=== PATIENT | female | born 1930 | race Caucasian/White ===

== ENCOUNTER 2017-12-19 14:35 | Emergency (ER) | payer MEDICARE, BC ==
[2017-12-19] MEDS ORDERED: traMADol 50 MG Tab PO ONE (14:45)
[2017-12-19 15:05] VITALS: BP 135/79
--- NOTE | 2017-12-19 15:33 | EDM.PDOC ---
ED HPI GENERAL MEDICAL PROBLEM - General Chief Complaint: General Stated Complaint: Fall with low back pain Time Seen by Provider: 12/19/17 14:44 Source of Information: Reports: Patient, Other (Marlee) History Limitations: Reports: No Limitations - History of Present Illness INITIAL COMMENTS - FREE TEXT/NARRATIVE: Patient comes to ER with complaint of mid back pain and left hip discomfort after falling onto buttocks this morning while picking out her clothes for the day. Complained of developing a sensation of dizziness which led to the fall. Points to lower thoracic/upper lumbar region as area in question. Did not hit head. Has small bruise left elbow. No LOC. No other reported new complaints at this time. History of chronic vertigo. No focal acute neuro changes. No fevers/chills Denies HEENT changes/CV/Resp/GI/ changes. Mid-Back Pain Score (Numeric/FACES): 10 - Related Data Allergies Allergy/AdvReac Type Severity Reaction Status Date / Time enoxaparin sodium Allergy Bleeding Verified 05/30/16 14:38 [From Lovenox] heparin Allergy Bleeding Verified 05/30/16 14:38 NSAIDS (Non-Steroidal Allergy Cannot Verified 05/30/16 14:38 Anti-Inflamma Remember tetracycline [Tetracycline] Allergy Fainting Verified 05/30/16 14:38 Home Meds: Home Meds Allopurinol [Zyloprim] 100 mg PO DAILY 02/24/14 [History] Calcitriol [Rocaltrol] 0.25 mcg PO ASDIRECTED 02/24/14 [History] Citalopram Hydrobromide [Celexa] 10 mg PO DAILY 02/24/14 [History] LORazepam [Ativan] 0.25 mg PO BID 02/24/14 [History] Mirtazapine [Remeron] 15 mg PO BEDTIME 02/24/14 [History] Nitroglycerin [Nitrostat] 0.4 mg SL ASDIRECTED 02/24/14 [History] Potassium Chloride [Klor-Con M20] 20 meq PO DAILY 02/24/14 [History] Simvastatin [Zocor] 40 mg PO BEDTIME 02/24/14 [History] Acetaminophen [Tylenol] 650 mg PO Q4HR PRN 05/30/16 [History] Acetaminophen with Codeine [Acetaminophen-Cod #3] 1 tab PO BEDTIME MDD 3000 mg Tylenol, 360 mg Codein 05/30/16 [History] Acetaminophen with Codeine [Acetaminophen-Cod #3] 1 tab PO Q4HR PRN MDD 3000 Tylenol, 360 codiene 05/30/16 [History] Bisacodyl [Biscolax] 10 mg RC DAILY PRN 05/30/16 [History] Bumetanide [Bumex] 1 mg PO BID 05/30/16 [History] Gabapentin [Neurontin] 100 mg PO BID 05/30/16 [History] Magnesium Hydroxide [Milk of Magnesia] 30 ml PO DAILY PRN 05/30/16 [History] Menthol [Cough Drops] 5.4 mg MM ASDIRECTED PRN 05/30/16 [History] Metoprolol Succinate [Toprol XL] 12.5 mg PO DAILY 05/30/16 [History] Propylene Glycol/Peg 400 [Systane 0.3-0.4% Eye Drops] 2 drop EYEBOTH QID [History] Saliva Stimulant Agents Comb.3 [Biotene Moisturizing Mouth [place]] 2 spray MM ASDIRECTED PRN 05/30/16 [History] Sennosides/Docusate Sodium [Senna S Tablet] 1 each PO BID PRN 05/30/16 [History] Albuterol Sulfate 0.63 mg IH QID PRN 12/19/17 [History] Albuterol [Proair HFA] 2 puff INH Q4HR PRN 12/19/17 [History] Calcium Carbonate [Tums] 2 tab PO ASDIRECTED PRN MDD 10 12/19/17 [History] Cholecalciferol (Vitamin D3) [Vitamin D3] 1,000 unit PO DAILY 12/19/17 [History] Fluticasone Furoate [Arnuity Ellipta] 200 mcg IH DAILY 12/19/17 [History] Loperamide HCl [Imodium A-D] 2 mg PO Q3HR PRN MDD 8 12/19/17 [History] Oxybutynin [Oxybutynin ER] 10 mg PO DAILY 12/19/17 [History] Umeclidinium [place] [Incruse Ellipta] 1 puff INH DAILY 12/19/17 [History] traMADol HCl [Tramadol HCl] 50 mg PO Q6H PRN #28 tablet 12/19/17 [Rx] Past Medical History HEENT History: Reports: Cataract, Other (See Below) Other HEENT History: Chronic vertigo, bilateral cataract surgery as below Cardiovascular History: Reports: Aneurysm, Bypass, CAD, Cardiomyopathy, Heart Failure, Heart Murmur, High Cholesterol, Hypertension, DE, Pulmonary Hypertension, PVD, Stents, Other (See Below) Other Cardiovascular History: 2 previous aneurysms currently under observation protocol, severe ischemic cardiomyopathy with recurrent CHF, dyslipidemia, multiple previous non-STEMI MIs including on 08/04/10, September 2011, and 10/13/11 , multiple cardiac surgeries and AAA repair as below Respiratory History: Reports: COPD Gastrointestinal History: Reports: Cholelithiasis, Chronic Constipation, Gastritis, GI Bleed, PUD, Other (See Below) Other Gastrointestinal History: Likely upper GI bleed diagnosed on 05/09/14, chronic dysphagia Genitourinary History: Reports: Chronic Renal Insuffiency, UTI, Recurrent SINGLE RESOURCE BOSS History: Reports: Musculoskeletal History: Reports: Fracture, Gout, Osteoarthritis, Osteoporosis, Other (See Below) Other Musculoskeletal History: Previous finger fracture Psychiatric History: Reports: Anxiety, Depression Endocrine/Metabolic History: Reports: Hyperparathyroidism Hematologic History: Reports: Anemia Oncologic (Cancer) History: Reports: Basal Cell Carcinoma, Malignant Melanoma, Other (See Below) Other Oncologic History: Melanoma of the nose and ears per [facility] chart however [facility] record showed these to be basal cell carcinomas, basal cell of the left chin and right Achilles tendon area with additional basal cell carcinoma of the right nose in 1998 and right ear in 2005 - Infectious Disease History Infectious Disease History: Reports: C-Difficile, Chicken Pox, Measles, Mumps, Shingles - Past Surgical History HEENT Surgical History: Reports: Cataract Surgery, Tonsillectomy, Other (See Below) Cardiovascular Surgical History: Reports: AAA Repair, Coronary Artery Bypass, Coronary Artery Stent, Other (See Below) GI Surgical History: Reports: Cholecystectomy, ERCP, Other (See Below) Musculoskeletal Surgical History: Reports: ORIF, Other (See Below) Dermatological Surgical History: Reports: Skin Biopsy - Past Imaging History Past Imaging History: Reports: Cardiac Echo, CAT Scan Social & Family History - Family History Cardiac: Reports: CAD, Hypertension, PVD/COD, Other (See Below) Other Cardiac Family History: Heart disease in 2 brothers and 2 sisters, hypertension in father, 5 sisters and mother, sister with renal artery stenosis as below Respiratory: Reports: COPD : Reports: Renal Disease/Insufficiency, Other (See Below) Other Family History: Chronic renal disease in sister including renal artery stenosis Neurological: Reports: CVA, Migraines, Other (See Below) Other Neurological Family History: Migraine headaches in paternal grandfather, CVA in father Psychiatric: Reports: Anxiety, Depression Endocrine/Metabolic: Reports: Diabetes, type II, Other (See Below) Other Endocrine/Metabolic Family History: Diabetes mellitus in son and mother Oncologic: Reports: Brain, Renal, Other (See Below) Other Oncologic Family History: Brother with renal cancer, granddaughter with brain cancer diagnosed as oligodendroglioma at age 19, unknown type of brain cancer in daughter in her 60s - Tobacco Use Smoking Status *Q: Never Smoker Second Hand Smoke Exposure: Yes - Caffeine Use Caffeine Use: Reports: Coffee - Alcohol Use Days Per Week of Alcohol Use: 0 - Recreational Drug Use Recreational Drug Use: No Drug Use in Last 12 Months: No - Living Situation & Occupation Living situation: Reports: , Extended Care Facility ED ROS GENERAL - Review of Systems Review Of Systems: ROS reveals no pertinent complaints other than HPI. ED EXAM, GENERAL - Physical Exam Exam: See Below Exam Limited By: No Limitations General Appearance: Alert, WD/WN, No Apparent Distress Eye Exam: Bilateral Eye: EOMI, PERRL Ears: Normal External Exam Nose: No: Nasal Deformity, Nasal Swelling, Nasal Drainage Throat/Mouth: Normal Inspection, Normal Voice, No Airway Compromise Head: Atraumatic, Normocephalic Neck: Normal Inspection, Supple, Non-Tender, Full Range of Motion Respiratory/Chest: No Respiratory Distress, Lungs Clear, Normal Breath Sounds, No Accessory Muscle Use, Chest Non-Tender Cardiovascular: Normal Peripheral Pulses, Regular Rate, Rhythm Peripheral Pulses: 2+: Radial (L), Radial (R) GI/Abdominal: Normal Bowel Sounds, Soft, Non-Tender, No Distention (Female) Exam: Deferred Rectal (Female) Exam: Deferred Back Exam: Other (mild tenderness noted palpation of thoraco-lumbar junction and adjacent soft tissue on right. ) Extremities: Normal Range of Motion, No Pedal Edema, Normal Capillary Refill, Other (mild tenderness left lateral hip. No bruising noted. ). 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 Equal strength lower extremities. Able to lift legs in air bilaterally without obvious discomfort. ) Psychiatric: Normal Affect, Normal Mood Skin Exam: Warm, Dry, Intact, Ecchymosis (left elbow. ) Course - Vital Signs Last Recorded V/S: Last Vital Signs Temp 36.6 C 12/19/17 14:35 Pulse 75 12/19/17 14:35 Resp 18 12/19/17 14:35 BP 135/79 12/19/17 14:35 Pulse Ox 92 L 12/19/17 14:35 - Orders/Labs/Meds Orders: Active Orders 24 hr Category Date Time Status Hip Min 2V or 3V w Pelvis Lt [CR] Stat Exams 12/19/17 15:25 Taken Lumbar Spine 2 or 3V [CR] Stat Exams 12/19/17 14:44 Taken Thoracic Spine 2V [CR] Stat Exams 12/19/17 14:44 Taken Meds: Medications Discontinued Medications Generic Name Dose Route Start Last Admin Trade Name Freq PRN Reason Stop Dose Admin Tramadol HCl 50 mg 12/19/17 14:45 12/19/17 15:23 Ultram PO 12/19/17 14:46 50 mg ONETIME ONE Administration - Radiology Interpretation Free Text/Narrative:: Xrays of thoracic and lumbar spine ordered to look for compression fracture. Pelvis and hip films ordered. Radiology did not note any acute changes suggestive of new compression fracture or other acute bony injury. - Re-Assessments/Exams Free Text/Narrative Re-Assessment/Exam: 12/19/17 17:08 Patient able to stand with assist, had weight equally on both extremities. Overall appeared comfortable throughout stay. Given Tramadol PO early on. Rated discomfort a "5" when standing. No obvious acute fracture noted. Conservative treatment plan at this time. Ice/ gentle activity/PRN Tramadol. To watch for changes. To follow up with primary as needed if no improvement is noted within the next week or if there are sudden worsening changes. Radiology recommended to consider MRI if additional imaging is thought to be required. Vital signs stable. No other complaints during stay in ER. Departure - Departure Time of Disposition: 16:53 Disposition: DC/Tfer to [facility] 03 Condition: Good Clinical Impression: Left hip pain Fall Qualifiers: Encounter type: initial encounter Qualified Code(s): W19.XXXA - Unspecified fall, initial encounter Back pain Qualifiers: Back pain location: back pain in unspecified location Chronicity: acute Back pain laterality: midline Qualified Code(s): M54.9 - Dorsalgia, unspecified Arm contusion Qualifiers: Encounter type: initial encounter Laterality: left Qualified Code(s): S40.022A - Contusion of left upper arm, initial encounter - Discharge Information Prescriptions: traMADol HCl [Tramadol HCl] 50 mg PO Q6H PRN #28 tablet PRN Reason: Pain (Moderate 4-6) Referrals: Jim Ricci MD [Primary Care Provider] - Forms: ED Department Discharge Additional Instructions: Watch for changes. If there are any concerns/worsening problems, or if pain is not improving within the next week, follow up with primary provider and consider obtaining MRI. Tramadol PRN pain. - My Orders Last 24 Hours: My Active Orders 12/19/17 14:44 Lumbar Spine 2 or 3V [CR] Stat Thoracic Spine 2V [CR] Stat 12/19/17 15:25 Hip Min 2V or 3V w Pelvis Lt [CR] Stat - Assessment/Plan Last 24 Hours: My Active Orders 12/19/17 14:44 Lumbar Spine 2 or 3V [CR] Stat Thoracic Spine 2V [CR] Stat 12/19/17 15:25 Hip Min 2V or 3V w Pelvis Lt [CR] Stat
== END 2017-12-19 15:10 ==
LOC: LL.ED 14:35
DX: S40.022A Contusion of left upper arm, initial encounter (principal); M25.552 Pain in left hip; M54.9 Dorsalgia, unspecified; I13.0 Hypertensive heart and chronic kidney disease with heart failure and stage 1 through stage 4 chronic kidney disease, or unspecified chronic kidney disease; I50.9 Heart failure, unspecified; N18.9 Chronic kidney disease, unspecified; I25.2 Old myocardial infarction; J44.9 Chronic obstructive pulmonary disease, unspecified; Z88.8 Allergy status to other drugs, medicaments and biological substances; Z79.899 Other long term (current) drug therapy; W19.XXXA Unspecified fall, initial encounter
CPT/HCPCS: 72070; 72100; 73502; 99284; A9270; 99283